=== PATIENT | male | born 1950 | race American Indian/Alaskan Native ===

== ENCOUNTER 2022-03-09 08:30 | Emergency (ER) | payer MEDICAID, MEDICARE ==
[2022-03-09] MEDS ORDERED: DEXTROSE 50% IN WATER (25GM) 50 ML SYRINGE IV SCH (09:01)
--- NOTE | 2022-03-09 09:03 | Emergency Department Report ---
<ZENANA C - Last Filed: 03/09/22 15:03> - General Chief complaint: Hypoglycemia Stated complaint: AMS Time Seen by Provider: 03/09/22 08:57 Source: EMS, old records reviewed Mode of arrival: Stretcher Limitations: Altered Mental Status - History of Present Illness Initial comments: 71-year male the past medical history diabetes currently on insulin and hypertension presents from home to the hospital with altered mental status secondary to hypoglycemia. Patient had an Accu-Chek of 38 upon EMS arrival. He was treated with D5 NS 250 mL with improvement in mental status. Patient also apparently had initial room air saturation of 88% was treated with supplemental oxygenation via nasal cannula. EMS reports repeat Accu-Chek of 359. Upon arriva l patient is awake but nonverbal and is only moving the left side of his body. Per EMS the significant other at the scene states patient was last seen normal around 7 PM last night when he went to sleep and was found altered this morning. Contact for girlfriend is not available and she is not present. After my assessment of the patient at the bedside I called next of kin contact on medical record and spoke to patient's sister Nina. She states she last spoke to patient 4 days ago. She denies that patient has a history of stroke, weakness, confusion, or aphasia. At his baseline he ambulates without assistance at baseline. Code stroke initiated. Repeat Accu-Chek in the ED was 65 and an amp of D50 provided prior to transport to CT - Related Data Home Medications Medication Instructions Recorded Confirmed Last Taken Chlorthalidone [Thalitone] 25 mg PO QDAY 06/30/13 06/30/13 Unknown Gabapentin 300 mg PO 06/30/13 06/30/13 Unknown Lisinopril/Hydrochlorothiazide 20 - 25 mg PO DAILY 06/30/13 06/30/13 Unknown [Zestoretic 20-25 mg] Metoprolol [Lopressor] 25 mg PO BID 06/30/13 06/30/13 Unknown lisinopriL [Zestril] 40 mg PO QDAY 06/30/13 06/30/13 Unknown metFORMIN [Glucophage] 500 mg PO BID 06/30/13 06/30/13 Unknown Previous Rx's Medication Instructions Recorded Last Taken Type Cephalexin [Keflex] 500 mg PO BID #14 capsule 07/09/14 Unknown Rx Sulfamethoxazole/Trimethoprim 1 each PO BID #14 tablet 04/22/14 Unknown Rx [Bactrim Ds] Allergies Allergy/AdvReac Type Severity Reaction Status Date / Time No Known Allergies Allergy Verified 04/22/14 10:06 ED Review of Systems Comment: Unobtainable due to pts medical conditions ED Past Medical Hx - Past Medical History Hx Hypertension: Yes Hx Diabetes: Yes - Surgical History Additional Surgical History: Left shoulder surgery - Social History Smoking Status: Current Every Day Smoker Substance Use Type: Alcohol - Medications Home Medications: Home Medications Medication Instructions Recorded Confirmed Last Taken Type Chlorthalidone [Thalitone] 25 mg PO QDAY 06/30/13 06/30/13 Unknown History Gabapentin 300 mg PO 06/30/13 06/30/13 Unknown History Lisinopril/Hydrochlorothiazide 20 - 25 mg PO DAILY 06/30/13 06/30/13 Unknown History [Zestoretic 20-25 mg] Metoprolol [Lopressor] 25 mg PO BID 06/30/13 06/30/13 Unknown History lisinopriL [Zestril] 40 mg PO QDAY 06/30/13 06/30/13 Unknown History metFORMIN [Glucophage] 500 mg PO BID 06/30/13 06/30/13 Unknown History Cephalexin [Keflex] 500 mg PO BID #14 capsule 04/22/14 Unknown Rx Sulfamethoxazole/Trimethoprim 1 each PO BID #14 tablet 04/22/14 Unknown Rx [Bactrim Ds] ED Physical Exam - General Limitations: Altered Mental Status - Other Other exam information: General: No acute distress Head: Atraumatic Eyes: normal appearance ENT: Moist mucous membranes Neck: Normal appearance, no midline tenderness Chest: Clear to auscultation bilaterally CV: Regular rate and rhythm Abdomen: Soft, normal bowel sounds, nontender, nondistended, no rebound or guarding Back: Normal inspection Extremity: Normal inspection Neuro: Alert, nonverbal Psych: Appropriate behavior Skin: No rash - Assessment Assessment Interval: Baseline - Level of Consciousness 1a. Level of Consciousness: arousable/minor stimuli - LOC Questions 1b. LOC Questions: answers no questions correctly - LOC Command 1c. LOC Commands: performs no tasks correctly - Best Gaze 2. Best Gaze: forced deviation - Visual 3. Visual: no visual loss - Facial Palsy 4. Facial Palsy: normal symmetrical movement - Motor Arm 5a. Motor Arm Left: no drift 5b. Motor Arm Right: no movement - Motor Leg 6a. Motor Leg Left: no drift 6b. Motor Leg Right: no movement - Limb Ataxia 7. Limb Ataxia: absent - Sensory 8. Sensory: normal - Best Language 9. Best Language: mute/global aphasia - Dysarthria 10. Dysarthria: severe dysarthria - Extinction and Inattention 11. Extinction/Inattention: no abnormality - Scoring Total Score: 20 Stroke Severity: Moderate to Severe Stroke ED Course - Reevaluation(s) Reevaluation #1: 03/09/22 11:23 Patient's girlfriend of 20 years at the bedside. They are not legally . She states patient recently started to follow-up with a physician and was placed on diabetes medication 03/09/22 11:51 sister at bedside to consent for blood transfusion 03/09/22 15:05 Patient was medicated with Benadryl and Ativan due to agitation to facilitate obtaining MRI - Consultations Consultation #1: 03/09/22 11:38 Neurology was initially consulted during code stroke. I rediscussed case with Dr. Limon at this time regarding CT findings of possible dural sinus thrombosis. Recommends anticoagulation with heparin or Lovenox. Consultation #2: 03/09/22 13:06 case d/w Dr Donavon lainez neurosurgeon. Recommends either with CT venogram or MRI brain without and MRI cervical spine. I discussed case with development technologist and they are only able to give IV contrast was in a 24-hour period. Therefore stat MRI ordered. Patient would not be accepted for admission here until MRI results to make sure that patient does not require transfer to a higher level of care ED Medical Decision Making - Lab Data Result diagrams: 03/09/22 09:48 03/09/22 09:48 Lab Results 03/09/22 03/09/22 03/09/22 Range/Units 09:48 09:48 09:48 WBC 6.8 (4.5-11.0) K/mm3 RBC 1.85 L (3.65-5.03) M/mm3 Hgb 5.5 L* (11.8-15.2) gm/dl Hct 16.1 L* (35.5-45.6) % MCV 87 (84-94) fl MCH 30 (28-32) pg MCHC 35 H (32-34) % RDW 14.7 (13.2-15.2) % Plt Count 84 L (140-440) K/mm3 Lymph % (Auto) 27.7 (13.4-35.0) % [place] % (Auto) 8.4 H (0.0-7.3) % Eos % (Auto) 0.0 (0.0-4.3) % Baso % (Auto) 1.9 H (0.0-1.8) % Lymph # (Auto) 1.9 (1.2-5.4) K/mm3 [place] # (Auto) 0.6 (0.0-0.8) K/mm3 Eos # (Auto) 0.0 (0.0-0.4) K/mm3 Baso # (Auto) 0.1 (0.0-0.1) K/mm3 Seg Neutrophils % 62.0 (40.0-70.0) % Seg Neutrophils # 4.2 (1.8-7.7) K/mm3 PT 17.3 H (12.2-14.9) Sec. INR 1.26 H (0.87-1.13) APTT 41.3 H (24.2-36.6) Sec. Thrombin Time 13.6 L (15.1-19.6) Sec. Sodium (137-145) mmol/L Potassium (3.6-5.0) mmol/L Chloride (98-107) mmol/L Carbon Dioxide (22-30) mmol/L Anion Gap mmol/L BUN (9-20) mg/dL Creatinine (0.8-1.3) mg/dL Estimated GFR ml/min BUN/Creatinine Ratio % Glucose (75-100) mg/dL POC Glucose (70-105) mg/dL Calcium (8.4-10.2) mg/dL Total Bilirubin (0.1-1.2) mg/dL AST (5-40) units/L ALT (7-56) units/L Alkaline Phosphatase (35-129) units/L Total Creatine Kinase 134 (55-170) units/L CK-MB (CK-2) 3.3 (0.0-4.0) ng/mL CK-MB (CK-2) Rel Index 2.4 (0-4) Troponin T 0.014 (0.00-0.029) ng/mL Total Protein (6.3-8.2) g/dL Albumin (3.9-5) g/dL Albumin/Globulin Ratio % 03/09/22 03/09/22 Range/Units 09:48 10:19 WBC (4.5-11.0) K/mm3 RBC (3.65-5.03) M/mm3 Hgb (11.8-15.2) gm/dl Hct (35.5-45.6) % MCV (84-94) fl MCH (28-32) pg MCHC (32-34) % RDW (13.2-15.2) % Plt Count (140-440) K/mm3 Lymph % (Auto) (13.4-35.0) % [place] % (Auto) (0.0-7.3) % Eos % (Auto) (0.0-4.3) % Baso % (Auto) (0.0-1.8) % Lymph # (Auto) (1.2-5.4) K/mm3 [place] # (Auto) (0.0-0.8) K/mm3 Eos # (Auto) (0.0-0.4) K/mm3 Baso # (Auto) (0.0-0.1) K/mm3 Seg Neutrophils % (40.0-70.0) % Seg Neutrophils # (1.8-7.7) K/mm3 PT (12.2-14.9) Sec. INR (0.87-1.13) APTT (24.2-36.6) Sec. Thrombin Time (15.1-19.6) Sec. Sodium 124 L (137-145) mmol/L Potassium 3.9 (3.6-5.0) mmol/L Chloride 91.7 L (98-107) mmol/L Carbon Dioxide 18 L (22-30) mmol/L Anion Gap 18 mmol/L BUN 11 (9-20) mg/dL Creatinine 0.4 L (0.8-1.3) mg/dL Estimated GFR > 60 ml/min BUN/Creatinine Ratio 28 % Glucose 98 (75-100) mg/dL POC Glucose 109 H (70-105) mg/dL Calcium 7.8 L (8.4-10.2) mg/dL Total Bilirubin 0.30 (0.1-1.2) mg/dL AST 14 (5-40) units/L ALT 9 (7-56) units/L Alkaline Phosphatase 152 H (35-129) units/L Total Creatine Kinase (55-170) units/L CK-MB (CK-2) (0.0-4.0) ng/mL CK-MB (CK-2) Rel Index (0-4) Troponin T (0.00-0.029) ng/mL Total Protein 5.7 L (6.3-8.2) g/dL Albumin 3.0 L (3.9-5) g/dL Albumin/Globulin Ratio 1.1 % - EKG Data -: EKG Interpreted by Ma EKG shows normal: sinus rhythm, ST-T waves (no stemi) - Radiology Data Radiology results: report reviewed CT HEAD WITHOUT CONTRAST INDICATION / CLINICAL INFORMATION: Stroke symptoms. TECHNIQUE: Axial imaging performed from the skull apex through the skull base without the use of contrast. Sagittal and coronal reformatted images. All CT scans at this location are performed us ing CT dose reduction for ALARA by means of automated exposure control. COMPARISON: None available. FINDINGS: CEREBRAL PARENCHYMA: No acute parenchymal abnormality is detected. There are moderate chronic ischemic changes in the white matter. There are 2 focal chronic infarcts in the left anterior basal ganglia measuring up to 1.5 cm and the left subinsular region measuring up to 1.0 cm. HEMORRHAGE: None. EXTRA-AXIAL SPACES: Normal in size and morphology for the patient's age. VENTRICULAR SYSTEM: Ventricular size is slightly prominent which could represent central volume loss. Mild normal pressure hydrocephalus could also be considered. MIDLINE SHIFT OR HERNIATION: None. CEREBELLUM / BRAINSTEM: No significant abnormality. CALVARIUM: No significant abnormality. ORBITS: Normal as visualized. PARANASAL SINUSES / MASTOID AIR CELLS: Mild to moderate mucosal thickening in the left ethmoid and left maxillary sinuses. The remaining sinuses are clear. SOFT TISSUES of HEAD: No significant abnormality. ADDITIONAL FINDINGS: None. IMPRESSION: No acute intracranial abnormality. Chronic white matter changes. 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 Slightly prominent ventricular system probably representing central volume loss. Chronic appearing sinus disease in the left ethmoid and maxillary sinuses. CTA neck without and with intravenous contrast material CLINICAL HISTORY: hypoglycemia, right sided weakness TECHNIQUE: Following acquisition of a timing bolus 0.625 mm thick contiguous axial scans w ere obtained from aortic arch to the skull base during rapid bolus intravenous contrast infusion. In addition to evaluation of axial source images multiplanar reconstructions were produced and reviewed for this report. 3 plane MIP reconstructions were produced and reviewed. Contrast dose report: Omnipaque 350: 100: ml, administered intravenously All CT examinations performed at this facility utilize modulated dose reduction, iterative reconstruction or weight-based dosing, as appropriate, to obtain a radiation dose which is as low as can reasonably be achieved. FINDINGS: Evaluation of bone windows reveals multiple lytic lesions throughout the cervical spine and upper thoracic region. Similar findings are seen in the manubrium sternum. The largest lesions are observed in the C7 and T1 spinous processes and the T2 vertebral body. Extensive involvement of the right scapula is noted. There is a pathological fracture through the glenoid fossa. Considerations include multiple myeloma and widespread metastatic disease. Thoracic aorta:No abnormalities are identified along the course of the thoracic aorta.. There is a common origin of the brachiocephalic artery and left common carotid artery. The origins of the great vessels have an otherwise unremarkable appearance. Brachiocephalic artery, left common carotid artery origin and left subclavian artery all have an unremarkable appearance. Right carotid artery: Calcified atherosclerotic plaque is present at the distal right common carotid artery and right carotid bulb without evidence of associated stenosis. No additional abnormalities are seen along the course of the RCCA, at the right carotid bifurcation or along the cervical portions of the HIRA. Left carotid artery: Mildly calcified atherosclerotic plaque is present at the left carotid bulb with no associated stenosis. No additional abnormalities are noted along the course of the left common carotid artery, at the left carotid bifurcation or along the course of the cervical segments of the LICA. Posterior circulation: Calcified atherosclerotic plaque is observed at the origins of both vertebral arteries. There is no associated stenosis. The 1 in the A2 segments of the vertebral arteries have an unremarkable appearance. No abnormalities are seen along the course of the V3 segments. The degree of stenosis, if any, is determined utilizing NASCET like criteria. In this case there is no indication of hemodynamically significant stenosis at the carotid bifurcations or elsewhere. Evaluation of the nonvascular soft tissue structures reveal no abnormality. There is no indication of cervical lymphadenopathy. No abnormalities are seen along the course of the airway. Visualized portions of the parotid glands and the submandibular salivary glands have a normal appearance. Thyroid gland has a normal appearance. Evaluation of the lung apices reveals no evidence of lung nodule or infiltrate. IMPRESSION: 1. Widespread lytic bone lesions likely due to multiple myeloma or widespread metastatic disease to bone. 2. No indication of hemodynamically significant stenosis at the carotid bifurcations or elsewhere. CTA head with intravenous contrast CLINICAL HISTORY: hypoglycemia, right sided weakness TECHNIQUE: 0.625 mm thick contiguous axial scans were obtained from the skull base to the skull vertex during rapid bolus administration of intravenous contrast material. Multiplanar reconstructions were produced in the coronal and sagittal planes. In addition 3 plane MIP instructions were produced and reviewed for this report. The axial source images and reconstructed images were reviewed for this report. CONTRAST DOSE REPORT: Omnipaque 350: 100 ml administered intravenously. All CT scans at this location are performed using CT dose reduction for ALARA by means of automated exposure control. FINDINGS: Internal carotid arteries: Extensively calcified atherosclerotic plaque is seen along the course of the cavernous segments of both internal carotid arteries. This extends up through the communicating segments bilaterally. There does not appear to be an associated stenosis. Middle cerebral arteries:Normal and symmetrical M1 segments of the middle cerebral arteries are demonstrated. No abnormalities are seen on evaluation of the insular or opercular branches. Anterior cerebral arteries:Bilaterally symmetrical A1 segments are demonstrated. No abnormalities are seen along the course of the A2 segments or their visualized pericallosal branches. A small anterior communicating artery is identified. Vertebral arteries:Bilaterally symmetrical vertebral arteries are demonstrated. Both vertebral arteries contribute to the basilar artery origin. Basilar artery:Basilar artery has an unremarkable appearance. Posterior cerebral arteries:Bilaterally symmetrical posterior cerebral arteries are identified. Posterior communicating arteries are not identified. [place] of [place]:Not intact. see above. Dural sinuses: Dural venous sinuses are well demonstrated on this exam. There is no evidence of dural sinus thrombosis. Additional findings: Extensive soft tissue swelling is seen involving the cheeks and upper limit. This is incompletely evaluated. Possibility of cellulitis to be considered. Extensive inflammatory changes are present in the left maxillary sinus. There is dehiscence of the inferior lateral wall of the maxillary sinus. This appears to be related to advanced periodontal disease. IMPRESSION: 1. No indication of intercranial stenosis or large vessel occlusion. 2. Findings suggest facial cellulitis perhaps related to left maxillary sinusitis. ADDENDUM Addendum report 1 Evaluation of the dural sinuses is remarkable for absence of contrast opacification of the left transverse sinus and left sigmoid sinus. dural sinus thrombosis in these locations is suspected. This was discussed with Dr. Varela at 0930 hours Central standard time but I neglected to include this finding in the original report. Signer Name: Gavin Jane MD Signed: 03/09/2022 11:26 AM Workstation Name: [id number] - Medical Decision Making 71-year-old male presents to the hospital with hypoglycemia and stroke symptoms with acute change in mental status, aphasia, right-sided weakness. Last known well time graded 4.5 hours ago therefore patient is not a candidate for thrombolytics. CT angiogram head and neck does not show large vessel occlusion therefore patient is not a candidate for thrombectomy. Incidental findings on imaging does show multiple bony lytic lesions suspicious for Metastatic cancer versus multiple myeloma. Patient has significant anemia with brown stool that is guaiac negative. No signs of acute hemorrhage noted at this time. CT angio head positive for dural sinus thrombosis with recommended treatment with heparin or Lovenox as per neurologist. Patient has a guaiac negative stool test without signs of active bleeding. ER does have thrombocytopenia. Heparin drip will be initiated. Patient treated for hypoglycemia prior to ED arrival and given additional D50 in the ED. Hospitalist to admit for further treatment. Case will be signed out to oncoming physician Dr. Teran to follow-up for MR results and contact Dr. Lainez neurosurgeon to confirm that findings can be handled here if patient would not require transfer. Then we notify Dr. Alcala for admission order Critical Care Time: Yes Critical care time in (mins) excluding proc time.: 35 Critical Care Time: 35 Minutes of critical care time excluding procedures were used in the care of the patient. I came immediately to the bedside upon patient's arrival. I obtained history from EMS at the bedside. I discussed treatment plan with the nursing team members. I reviewed electronic record. I spoke with family to obtain medical history. Patient required multiple interventions and reassessments. Spoke with hospitalist and consultants for collaborative care ED Disposition Clinical Impression: Hypoglycemia, Aphasia, Right sided weakness, Dural sinus thrombosis, Lytic bone lesions on xray, Severe anemia, Thrombocytopenia Disposition: 51 HOSPICE/MEDICAL FACILITY Is pt being admited?: Yes Does the pt Need Aspirin: Yes Condition: Stable Referrals: PRIMARY CARE, [Primary Care Provider] - 3-5 Days Time of Disposition: 11:55 (Dr Alcala/hosptialist) <NISH TERAN - Last Filed: 03/09/22 17:53> ED Review of Systems ROS: Stated complaint: AMS Other details as noted in HPI ED Course Vital Signs 03/09/22 03/09/22 03/09/22 09:01 09:48 10:01 Temperature 96.8 F L Pulse Rate 104 H 110 H Respiratory 20 12 13 Rate Blood Pressure 121/67 Blood Pressure 100/59 [Left] O2 Sat by Pulse 97 84 83 L Oximetry 03/09/22 03/09/22 03/09/22 10:15 10:31 10:45 Temperature Pulse Rate 115 H 106 H 107 H Respiratory 15 17 11 L Rate Blood Pressure 130/67 107/52 90/45 Blood Pressure [Left] O2 Sat by Pulse 92 98 100 Oximetry 03/09/22 03/09/22 03/09/22 11:01 11:15 11:16 Temperature Pulse Rate 114 H 107 H 100 H Respiratory 18 17 18 Rate Blood Pressure 93/51 93/49 Blood Pressure 91/51 [Left] O2 Sat by Pulse 100 100 100 Oximetry 03/09/22 03/09/22 03/09/22 11:31 11:45 12:01 Temperature Pulse Rate 108 H 108 H 113 H Respiratory 17 15 18 Rate Blood Pressure 91/51 83/54 98/53 Blood Pressure [Left] O2 Sat by Pulse 100 99 100 Oximetry 03/09/22 03/09/22 03/09/22 12:10 12:15 12:31 Temperature Pulse Rate 110 H 111 H 109 H Respiratory 20 17 Rate Blood Pressure 86/49 88/46 Blood Pressure 86/59 [Left] O2 Sat by Pulse 100 100 Oximetry 03/09/22 03/09/22 03/09/22 12:45 13:01 13:04 Temperature 97.3 F L Pulse Rate 112 H 110 H Respiratory 13 18 31 H Rate Blood Pressure 89/47 91/52 104/73 Blood Pressure [Left] O2 Sat by Pulse 100 100 Oximetry 03/09/22 03/09/22 03/09/22 13:15 13:31 13:45 Temperature Pulse Rate Respiratory 20 19 18 Rate Blood Pressure 104/73 100/64 91/52 Blood Pressure [Left] O2 Sat by Pulse 100 100 100 Oximetry 03/09/22 03/09/22 03/09/22 14:01 14:15 14:24 Temperature 98.2 F Pulse Rate 101 H Respiratory 13 17 14 Rate Blood Pressure 97/63 109/65 Blood Pressure 109/63 [Left] O2 Sat by Pulse 100 100 100 Oximetry 03/09/22 03/09/22 03/09/22 14:31 14:45 15:01 Temperature Pulse Rate Respiratory 15 18 13 Rate Blood Pressure 109/63 109/65 109/64 Blood Pressure [Left] O2 Sat by Pulse 100 100 100 Oximetry 03/09/22 03/09/22 03/09/22 15:09 15:11 15:20 Temperature Pulse Rate 101 H Respiratory 16 13 Rate Blood Pressure 111/61 110/65 Blood Pressure 104/73 [Left] O2 Sat by Pulse 99 100 Oximetry 03/09/22 03/09/22 03/09/22 15:25 15:30 16:37 Temperature 97.5 F L Pulse Rate 109 H Respiratory 16 15 14 Rate Blood Pressure 110/65 107/70 110/65 Blood Pressure [Left] O2 Sat by Pulse 99 98 Oximetry 03/09/22 03/09/22 03/09/22 16:45 17:01 17:15 Temperature Pulse Rate 95 H 94 H 119 H Respiratory 17 15 11 L Rate Blood Pressure 91/55 110/65 105/59 Blood Pressure [Left] O2 Sat by Pulse 97 100 96 Oximetry 03/09/22 17:26 Temperature 97.8 F Pulse Rate 116 H Respiratory 14 Rate Blood Pressure Blood Pressure 114/80 [Left] O2 Sat by Pulse 98 Oximetry ED Medical Decision Making - Lab Data Result diagrams: 03/09/22 09:48 03/09/22 09:48 - Medical Decision Making Patient is back from MRI. Accu-Chek showed 23. Patient received dextrose 50 and I started patient on dextrose 10%. MRI of the brain showed dural sinus thrombosis associated with transverse sinus. I discussed the patient with Dr. Walls, neurosurgeon on-call. He advised to transfer patient to facility with an neuro ICU. I discussed the patient with [place] transfer center and waiting for result. I discussed the patient with Dr. Srivastava, neurosurgeon at [facility]. She accepted the patient to be transferred to [facility] for further management. She also advised to give patient Keppra and continue the current management. Critical care time in (mins) excluding proc time.: 45 Critical care attestation.: If time is entered above; I have spent that time in minutes in the direct care of this critically ill patient, excluding procedure time.
[2022-03-09] MEDS ORDERED: DEXTROSE 50% IN WATER (25GM) 50 ML SYRINGE IV ONE ×3 (09:04→17:00)
--- NOTE | 2022-03-09 09:19 | Consultation ---
Medications and Allergies Allergies Allergy/AdvReac Type Severity Reaction Status Date / Time No Known Allergies Allergy Verified 04/22/14 10:06 Home Medications Medication Instructions Recorded Confirmed Last Taken Type Chlorthalidone [Thalitone] 25 mg PO QDAY 06/30/13 06/30/13 Unknown History Gabapentin 300 mg PO 06/30/13 06/30/13 Unknown History Lisinopril/Hydrochlorothiazide 20 - 25 mg PO DAILY 06/30/13 06/30/13 Unknown History [Zestoretic 20-25 mg] Metoprolol [Lopressor] 25 mg PO BID 06/30/13 06/30/13 Unknown History lisinopriL [Zestril] 40 mg PO QDAY 06/30/13 06/30/13 Unknown History metFORMIN [Glucophage] 500 mg PO BID 06/30/13 06/30/13 Unknown History Cephalexin [Keflex] 500 mg PO BID #14 capsule 04/22/14 Unknown Rx Sulfamethoxazole/Trimethoprim 1 each PO BID #14 tablet 04/22/14 Unknown Rx [Bactrim Ds] Active Meds: Active Medications Dextrose (Dextrose 50% In Water (25gm) 50 Ml Syringe) 50 ml IV ONCE LUCA; Protocol Physical Examination - Vital Signs Vital Signs: Vital Signs Temp Pulse Resp BP Pulse Ox 96.8 F L 104 H 20 100/59 97 03/09/22 09:01 03/09/22 09:01 03/09/22 09:01 03/09/22 09:01 03/09/22 09:01 Assessment and Plan [facility] Consult Note # Demographics Consult Type: Acute Stroke Level 1 (0-4.5 hrs) Patient Location: Emergency Room First Name: John Last Name: Brandt Date of : 1950 Age: 71 Gender: Male Facility: [facility] Time of Initial Page (Eastern Time): 03/09/2022, 09:03 Time of Return Call (Eastern Time): 03/09/2022, 09:03 # HPI History: 71M lives with girlfriend, no contact information for her, she is not present. Reportedly last well at 19:00 yesterday. On insulin for DM, low glucose 35 per EMS, given dextrose. Now not speaking and right weakness. Per family he is able to walk and communicate normally. Glucose low at 65 in ED. # Scores Time of exam and NIHSS (Eastern Time): 03/09/2022, 09:08 Level of Consciousness 1a: [2] = Not alert; requires strong or painful stim LOC Questions 1b: [2] = Answers neither correctly LOC Commands 1c: [2] = Performs neither correctly Best Gaze 2: [2] = Forced deviation Visual 3: [0] = No visual loss Facial Palsy 4: [0] = Normal symmetrical movements Motor Arm Left 5a: [0] = No drift Motor Arm Right 5b: [4] = No movement Motor Leg Left 6a: [0] = No drift Motor Leg Right 6b: [3] = No effort against gravity Limb Ataxia 7: [0] = Absent Sensory 8: [0] = Normal Best Language 9: [3] = Mute Dysarthria 10: [2] = Severe dysarthria Extinction and Inattention 11: [0] = No abnormality NIHSS Total: 20 # Exam SBP: 100 DBP: 59 # PMH-FH-SH Past Medical History: Diabetes hypertension Past Surgical History: L shoulder surgery Social History: smoker occasional alcohol Medications: antihypertensive gabapentin, insulin # Data Time Head CT personally read by me (Eastern Time): 03/09/2022, 09:[address]: no bleed preliminarily reviewed by me, please refer to radiology read for official reading # Assessment Impression: Ischemic Stroke (Acute) Or neurologic deficit due to hypoglycemia, subclinical seizure, other. Favor stroke with current examination. # Plan Thrombolytic/Intervention: Possible IA candidate Thrombolytic Exclusion (< 3 hour window): time of onset unclear Thrombolytic Exclusion: > 4.5 hours Possible IA Candidate: CTA pending Target Blood Pressure: SBP < 220 Imaging: (urgency: routine): MRI Brain without contrast Diagnostic Test: echo without bubble study Medication: aspirin 81 mg daily start statin with goal of LDL < 70 Other: LDL < 70 permissive hypertension telemetry monitoring I have discussed my recommendations with the referring provider Additional Recommendations: If large vessel occlusion found on CTA head/neck, urgent consultation with neurointerventional specialist and transfer. Otherwise can admit locally. Disposition: admit # Logistics Telemedicine: Interactive 2 way audio and visual telecommunication technology was utilized during this visit
--- NOTE | 2022-03-09 10:14 | Cat Scan Report ---
CT HEAD WITHOUT CONTRAST INDICATION / CLINICAL INFORMATION: Stroke symptoms. TECHNIQUE: Axial imaging performed from the skull apex through the skull base without the use of cont rast. Sagittal and coronal reformatted images. All CT scans at this location are performed using CT dose reduction for ALARA by means of automated exposure control. COMPARISON: None available. FINDINGS: CEREBRAL PARENCHYMA: No acute parenchymal abnormality is detected. There are moderate chronic ischemi c changes in the white matter. There are 2 focal chronic infarcts in the left anterior basal ganglia measuring up to 1.5 cm and the left subinsular region measuring up to 1.0 cm. HEMORRHAGE: None. EXTRA-AXIAL SPACES: Normal in size and morphology for the patient's age. VENTRICULAR SYSTEM: Ventricular size is slightly prominent which could represent central volume loss. Mild normal pressure hydrocephalus could also be considered. MIDLINE SHIFT OR HERNIATION: None. CEREBELLUM / BRAINSTEM: No significant abnormality. CALVARIUM: No significant abnormality. ORBITS: Normal as visualized. PARANASAL SINUSES / MASTOID AIR CELLS: Mild to moderate mucosal thickening in the left ethmoid and le ft maxillary sinuses. The remaining sinuses are clear. SOFT TISSUES of HEAD: No significant abnormality. ADDITIONAL FINDINGS: None. IMPRESSION: No acute intracranial abnormality. Chronic white matter changes. Focal chronic infarcts in the left a nterior basal ganglia region. Slightly prominent ventricular system probably representing central volume loss. Chronic appearing sinus disease in the left ethmoid and maxillary sinuses. CODE STROKE: Time of Communication (SYSTEM DEVELOPMENT MANAGER/CDT): 0908 hours Licensed Practitioner Receiving Report: Dr. Varela Signer Name: Oren Harley Jr, MD Signed: 03/09/2022 10:09 AM Workstation Name: [id number]
[2022-03-09 10:18] LABS: Basophils # (Auto) 0.1 K/mm3 (0.0-0.1); Basophils % (Auto) 1.9 % (0.0-1.8); Lymphocytes # (Auto) 1.9 K/mm3 (1.2-5.4); Lymphocytes % (Auto) 27.7 % (13.4-35.0); Mean Corpuscular HGB Conc 35 % (32-34); Mean Corpuscular Volume 87 fl (84-94); Monocytes # (Auto) 0.6 K/mm3 (0.0-0.8); Monocytes % (Auto) 8.4 % (0.0-7.3); Red Blood Count 1.85 M/mm3 (3.65-5.03); Red Cell Distribution Width 14.7 % (13.2-15.2)
[2022-03-09 10:24] LABS: Hematocrit 16.1 % (35.5-45.6); Hemoglobin 5.5 gm/dl (11.8-15.2); Platelet Count 84 K/mm3 (140-440)
[2022-03-09 10:26] LABS: INR 1.26 (0.87-1.13)
[2022-03-09 10:27] LABS: Thrombin Time 13.6 Sec. (15.1-19.6)
[2022-03-09 10:28] LABS: Partial Thromboplastin Time 41.3 Sec. (24.2-36.6)
[2022-03-09 10:35] LABS: Creatine Kinase MB 3.3 ng/mL (0.0-4.0)
--- NOTE | 2022-03-09 10:36 | Cat Scan Report ---
CTA neck without and with intravenous contrast material CLINICAL HISTORY: hypoglycemia, right sided weakness TECHNIQUE: Following acquisition of a timing bolus 0.625 mm thick contiguous axial scans were obtained from aort ic arch to the skull base during rapid bolus intravenous contrast infusion. In addition to evaluation of axial source images multiplanar reconstructions were produced and reviewed for this report. 3 ceci ne MIP reconstructions were produced and reviewed. Contrast dose report: Omnipaque 350: 100: ml, administered intravenously All CT examinations performed at this facility utilize modulated dose reduction, iterative reconstruc tion or weight-based dosing, as appropriate, to obtain a radiation dose which is as low as can reason ably be achieved. FINDINGS: Evaluation of bone windows reveals multiple lytic lesions throughout the cervical spine and upper tho racic region. Similar findings are seen in the manubrium sternum. The largest lesions are observed in the C7 and T1 spinous processes and the T2 vertebral body. Extensive involvement of the right scapul a is noted. There is a pathological fracture through the glenoid fossa. Considerations include multip le myeloma and widespread metastatic disease. Thoracic aorta:No abnormalities are identified along the course of the thoracic aorta.. There is a co mmon origin of the brachiocephalic artery and left common carotid artery. The origins of the great ve ssels have an otherwise unremarkable appearance. Brachiocephalic artery, left common carotid artery o rigin and left subclavian artery all have an unremarkable appearance. Right carotid artery: Calcified atherosclerotic plaque is present at the distal right common carotid artery and right carotid bulb without evidence of associated stenosis. No additional abnormalities ar e seen along the course of the RCCA, at the right carotid bifurcation or along the cervical portions of the HIRA. Left carotid artery: Mildly calcified atherosclerotic plaque is present at the left carotid bulb with no associated stenosis. No additional abnormalities are noted along the course of the left common ca rotid artery, at the left carotid bifurcation or along the course of the cervical segments of the LIC A. Posterior circulation: Calcified atherosclerotic plaque is observed at the origins of both vertebral arteries. There is no associated stenosis. The 1 in the A2 segments of the vertebral arteries have an unremarkable appearance. No abnormalities are seen along the course of the V3 segments. The degree of stenosis, if any, is determined utilizing NASCET like criteria. In this case there is no indication of hemodynamically significant stenosis at the carotid bifurcations or elsewhere. Evaluation of the nonvascular soft tissue structures reveal no abnormality. There is no indication of cervical lymphadenopathy. No abnormalities are seen along the course of the airway. Visualized porti ons of the parotid glands and the submandibular salivary glands have a normal appearance. Thyroid gla nd has a normal appearance. Evaluation of the lung apices reveals no evidence of lung nodule or infil trate. IMPRESSION: 1. Widespread lytic bone lesions likely due to multiple myeloma or widespread metastatic disease to b one. 2. No indication of hemodynamically significant stenosis at the carotid bifurcations or elsewhere. CTA head with intravenous contrast CLINICAL HISTORY: hypoglycemia, right sided weakness TECHNIQUE: 0.625 mm thick contiguous axial scans were obtained from the skull base to the skull vertex during r apid bolus administration of intravenous contrast material. Multiplanar reconstructions were produced in the coronal and sagittal planes. In addition 3 plane MIP instructions were produced and reviewed for this report. The axial source images and reconstructed images were reviewed for this report. CONTRAST DOSE REPORT: Omnipaque 350: 100 ml administered intravenously. All CT scans at this location are performed using CT dose reduction for ALARA by means of automated e xposure control. FINDINGS: Internal carotid arteries: Extensively calcified atherosclerotic plaque is seen along the course of t he cavernous segments of both internal carotid arteries. This extends up through the communicating se gments bilaterally. There does not appear to be an associated stenosis. Middle cerebral arteries:Normal and symmetrical M1 segments of the middle cerebral arteries are demon strated. No abnormalities are seen on evaluation of the insular or opercular branches. Anterior cerebral arteries:Bilaterally symmetrical A1 segments are demonstrated. No abnormalities are seen along the course of the A2 segments or their visualized pericallosal branches. A small anterior communicating artery is identified. Vertebral arteries:Bilaterally symmetrical vertebral arteries are demonstrated. Both vertebral arteri es contribute to the basilar artery origin. Basilar artery:Basilar artery has an unremarkable appearance. Posterior cerebral arteries:Bilaterally symmetrical posterior cerebral arteries are identified. Post erior communicating arteries are not identified. [place]:Not intact. see above. Dural sinuses: Dural venous sinuses are well demonstrated on this exam. There is no evidence of dural sinus thrombosis. Additional findings: Extensive soft tissue swelling is seen involving the cheeks and upper limit. Thi s is incompletely evaluated. Possibility of cellulitis to be considered. Extensive inflammatory platt es are present in the left maxillary sinus. There is dehiscence of the inferior lateral wall of the m axillary sinus. This appears to be related to advanced periodontal disease. IMPRESSION: 1. No indication of intercranial stenosis or large vessel occlusion. 2. Findings suggest facial cellulitis perhaps related to left maxillary sinusitis. CODE STROKE: Time of Communication (VE TEACHER/CDT): 0930 Central standard time Licensed Practitioner Receiving Report: Dr. Varela of the [facility] emergency de partment. Signer Name: Gavin Jane MD Signed: 03/09/2022 10:32 AM Workstation Name: [id number]
[2022-03-09 11:04] LABS: Alanine Aminotransferase 9 units/L (7-56); BUN/Creatinine Ratio 28; Blood Urea Nitrogen 11 mg/dL (9-20); Calcium 7.8 mg/dL (8.4-10.2); Hemolysis Index 47
--- NOTE | 2022-03-09 11:16 | XRay Report ---
CHEST 1 VIEW 03/09/2022 10:07 AM INDICATION / CLINICAL INFORMATION: hypoglycemia, ams. COMPARISON: None available. FINDINGS: SUPPORT DEVICES: None. HEART / MEDIASTINUM: No significant abnormality. LUNGS / PLEURA: Mild increased opacity extending from left hilum into the left lung. Elevation left h emidiaphragm and left effusion No pneumothorax. Signer Name: Perry Echols MD Signed: 03/09/2022 11:11 AM Workstation Name: [id number]
[2022-03-09] MEDS ORDERED: HEPARIN 10,000 UNITS/10 ML VIAL IV PRN (11:44)
[2022-03-09] MEDS ORDERED: HEPARIN 10,000 UNITS/10 ML VIAL IV ONE (11:44)
[2022-03-09] MEDS ORDERED: SODIUM CHLORIDE 0.9% 500 ML 500 ML IV ONE (11:46)
[2022-03-09] MEDS ORDERED: SODIUM CHLORIDE 0.9% 1000 ML 1,000 ML IV ONE ×2 (11:56→16:44)
[2022-03-09] MEDS ORDERED: HEPARIN/ 0.45% NACL DRIP 25,000 UNIT/500 ML BAG IV SCH (12:00)
--- NOTE | 2022-03-09 13:22 | History and Physical Report ---
History of Present Illness Chief complaint: He is confused and more weak than usual History of present illness: 71 YO Male with HTN, DM complicated by Neuropathy, Malnutrition, Debility presents ED for evaluation. Patient is confused and lethargic the time my evaluation and is unable to provide history. Patient daughter is at bedside during exam and interview and provides history. As per daughter the patient has experienced increased confusion and weakness over the past 2 weeks with persistent symptoms over the same timeframe. Patient was found to have increased weakness and confusion today. EMS was notified and upon arrival the patient was found to be in distress and subsequently transported to [facility] for f urther care and evaluation of the aforementioned symptoms. The patient was seen and evaluated in the emergency department. All lab and imaging studies reviewed. The patient was found to have decreased verbalization and is currently bedbound and nonambulatory and has a palliative performance score 30% and requires 6/6 assistance with activities of daily living. Patient found to have evidence of multiple myeloma with metastatic disease, metabolic encephalopathy, hypoglycemia, malnutrition. CT scan of the brain reveals dural venous sinus thrombosis in the left ethmoid sinus as well as left transverse sinus. Neurology team consulted in ED. Neurosurgery team notified. Patient initiated on therapeutic anticoagulation in the emergency department. Patient remains confused and lethargic at time of evaluation but has a positive gag reflex and is able to protect his airway without difficulty. Patient found to have poor prognosis. Advanced care planning conducted in ED. Past History Past Medical History: diabetes, hypertension Past Surgical History: Other (Shoulder surgery) Social history: Family history: hypertension Medications and Allergies Allergies Allergy/AdvReac Type Severity Reaction Status Date / Time No Known Allergies Allergy Verified 04/22/14 10:06 Home Medications Medication Instructions Recorded Confirmed Last Taken Type Chlorthalidone [Thalitone] 25 mg PO QDAY 06/30/13 06/30/13 Unknown History Gabapentin 300 mg PO 06/30/13 06/30/13 Unknown History Lisinopril/Hydrochlorothiazide 20 - 25 mg PO DAILY 06/30/13 06/30/13 Unknown History [Zestoretic 20-25 mg] Metoprolol [Lopressor] 25 mg PO BID 06/30/13 06/30/13 Unknown History lisinopriL [Zestril] 40 mg PO QDAY 06/30/13 06/30/13 Unknown History metFORMIN [Glucophage] 500 mg PO BID 06/30/13 06/30/13 Unknown History Cephalexin [Keflex] 500 mg PO BID #14 capsule 04/22/14 Unknown Rx Sulfamethoxazole/Trimethoprim 1 each PO BID #14 tablet 04/22/14 Unknown Rx [Bactrim Ds] Active Meds: Active Medications Dextrose (Dextrose 50% In Water (25gm) 50 Ml Syringe) 50 ml IV ONCE LUCA; Protocol Heparin Sodium (Porcine) (Heparin 10,000 Units/10 Ml Vial) 2,100 unit 40 unit/kg (2100 unit) IV Q6H PRN PRN Reason: Anti-Xa Assay < 0.1 units/ml Heparin Sodium/Sodium Chloride (Heparin/ 0.45% Nacl-25,000 Unit/500 Ml) 25,000 unit in 500 mls @ 15 mls/hr IV TITR LUCA; Protocol Review of Systems ROS unobtainable: due to mental status Exam - Constitutional Vitals: Temp Pulse Resp BP Pulse Ox 97.3 F L 110 H 31 H 104/73 99 03/09/22 13:04 03/09/22 13:04 03/09/22 13:04 03/09/22 13:04 03/09/22 11:45 General appearance: Present: mild distress - EENT Eyes: Present: PERRL ENT: hearing intact, clear oral mucosa - Neck Neck: Present: supple, normal ROM - Respiratory Respiratory effort: normal Respiratory: bilateral: diminished - Cardiovascular Heart Sounds: Present: S1 & S2. Absent: rub, click - Extremities Extremities: pulses symmetrical, No edema Peripheral Pulses: within normal limits - Abdominal General gastrointestinal: Present: soft, non-tender, non-distended, normal bowel sounds Male genitourinary: Present: normal - Integumentary Integumentary: Present: clear, warm, dry - Psychiatric Psychiatric: no appropriate mood/affect, no intact judgment & insight, no memory intact, agitated - Neurologic Neurologic: CNII-XII intact, no focal deficits, moves all extremities, no gait normal HEART Score - HEART Score Troponin: Troponin T 0.014 ng/mL (0.00-0.029) 03/09/22 09:48 Results - Labs CBC & Chem 7: 03/09/22 09:48 03/09/22 09:48 Labs: Abnormal lab results 03/09/22 03/09/22 03/09/22 Range/Units 09:48 09:48 09:48 RBC 1.85 L (3.65-5.03) M/mm3 Hgb 5.5 L* (11.8-15.2) gm/dl Hct 16.1 L* (35.5-45.6) % MCHC 35 H (32-34) % Plt Count 84 L (140-440) K/mm3 [place] % (Auto) 8.4 H (0.0-7.3) % Baso % (Auto) 1.9 H (0.0-1.8) % PT 17.3 H (12.2-14.9) Sec. INR 1.26 H (0.87-1.13) APTT 41.3 H (24.2-36.6) Sec. Thrombin Time 13.6 L (15.1-19.6) Sec. Sodium 124 L (137-145) mmol/L Chloride 91.7 L (98-107) mmol/L Carbon Dioxide 18 L (22-30) mmol/L Creatinine 0.4 L (0.8-1.3) mg/dL POC Glucose (70-105) mg/dL Calcium 7.8 L (8.4-10.2) mg/dL Alkaline Phosphatase 152 H (35-129) units/L Total Protein 5.7 L (6.3-8.2) g/dL Albumin 3.0 L (3.9-5) g/dL Crossmatch 03/09/22 03/09/22 Range/Units 10:19 10:56 RBC (3.65-5.03) M/mm3 Hgb (11.8-15.2) gm/dl Hct (35.5-45.6) % MCHC (32-34) % Plt Count (140-440) K/mm3 [place] % (Auto) (0.0-7.3) % Baso % (Auto) (0.0-1.8) % PT (12.2-14.9) Sec. INR (0.87-1.13) APTT (24.2-36.6) Sec. Thrombin Time (15.1-19.6) Sec. Sodium (137-145) mmol/L Chloride (98-107) mmol/L Carbon Dioxide (22-30) mmol/L Creatinine (0.8-1.3) mg/dL POC Glucose 109 H (70-105) mg/dL Calcium (8.4-10.2) mg/dL Alkaline Phosphatase (35-129) units/L Total Protein (6.3-8.2) g/dL Albumin (3.9-5) g/dL Crossmatch See Detail Assessment and Plan - Patient Problems (1) Dural sinus thrombosis Current Visit: Yes Status: Acute Plan to address problem: Teleneurology consulted in ED. Neurosurgical team notified. Patient suspected to require transfer for definitive treatment of dural venous sinus thromboses in both the left ethmoid sinus and left transverse sinus due to increased risk of worsening symptoms. Further treatment recommendations as per neurosurgery service are pending at this time. (2) Multiple myeloma Current Visit: Yes Status: Acute Qualifiers: Multiple myeloma remission status: unspecified Qualified Code(s): C90.00 - Multiple myeloma not having achieved remission Plan to address problem: Supportive care. Outpatient oncology follow-up. (3) Acidosis Current Visit: Yes Status: Acute Plan to address problem: IV for resuscitation therapy, supportive care. Repeat BMP in AM. (4) Metabolic encephalopathy Current Visit: Yes Status: Acute Plan to address problem: Supportive care, CT head, neurology consulted. Neurosurgery team consulted. Patient symptoms back to secondary to venous sinus thrombosis. As well as old CVA. (5) Severe malnutrition Current Visit: Yes Status: Acute Plan to address problem: Encourage increased protein intake when awake and alert only. Dietary supplementation. (6) Vascular dementia Current Visit: Yes Status: Acute Qualifiers: Dementia behavioral disturbance: without behavioral disturbance Qualified Code(s): F01.50 - Vascular dementia without behavioral disturbance Plan to address problem: Verbal prompting, verbal redirection, benzodiazepine therapy as clinically indicated. (7) Cerebral atherosclerosis Current Visit: Yes Status: Acute Plan to address problem: Risk factor reduction, supportive care. (8) Advance care planning Current Visit: Yes Status: Acute Plan to address problem: Disease education conducted, care plan discussed, diagnoses discussed, prognosis discussed. Patient is full code. Patient daughter informed of patient's poor prognosis with concomitant diagnosis of suspected multiple myeloma complicated by dural venous sinus thrombosis. Patient found to have poor prognosis. Geovani ter elects to pursue aggressive therapy. Patient daughter acknowledges understanding and agreement with current plan of care plan. Patient daughter informed of consult to neurosurgery. Currently awaiting recommendations regarding feasibility of neurosurgical intervention at this institution versus transfer to outside hospital for further care. +30 minutes. (9) Preventative health care Current Visit: Yes Status: Acute Plan to address problem: Patient daughter counseled regarding poor prognosis, end-of-life care. Patient daughter also counseled regarding home safety measures and outpatient follow-up with primary care physician for all age and risk factor appropriate screening test. +30 minutes.
[2022-03-09] MEDS ORDERED: diphenhydrAMINE 50 MG/ML VIAL IV ONE (14:08)
[2022-03-09] MEDS ORDERED: LORazepam 2 MG/ML VIAL IV ONE (14:37)
--- NOTE | 2022-03-09 16:45 | Magnetic Resonance Report ---
MRI BRAIN 03/09/2022 INDICATION / CLINICAL INFORMATION: acute right side weakness/aphasia, dura thrombosis. TECHNIQUE: Multiplanar, multisequence MR images of the brain were obtained. COMPARISON: None available. FINDINGS: BRAIN / INTRACRANIAL CONTENTS: Unenhanced MR images of the brain demonstrate no evidence of acute abn ormality. Ventricles and sulci are prominent in size, consistent with diffuse cerebral atrophy with central pre dominance. There is no evidence of acute ischemic injury, hemorrhage, or mass. Moderate chronic microangiopathic white matter T2 weighted hyperintensities are present in the periventricular white matter. There are no abnormal extra-axial fluid collections. There is relatively increased signal present within the left transverse and sigmoid sinuses on the FL AIR sequence. This corresponds to nonopacification on the CT angiogram, compatible with dural sinus v enous thrombosis associated with transverse sinus. EXTRACRANIAL: Unremarkable CRANIOCERVICAL JUNCTION: No significant abnormality. VASCULAR FLOW-VOIDS: No significant abnormality. IMPRESSION: No evidence of brain parenchymal acute abnormality. Age-related diffuse cerebral atrophy. Signer Name: Kiek Leiva MD Signed: 03/09/2022 4:40 PM Workstation Name: [id number]
--- NOTE | 2022-03-09 17:17 | Magnetic Resonance Report ---
MR cervical spine wo con INDICATION / CLINICAL INFORMATION: acute right side weakness/aphasia, dura thrombosis. TECHNIQUE: Multisequence, multiplanar images of the cervical spine were obtained. COMPARISON: None available. FINDINGS: ALIGNMENT: Disc space height loss with minimal degenerative retrolisthesis of C2 on C3, C3 on C4, and C4 on C5. VERTEBRAE:No aggressive osseous marrow signal. Vertebral body heights are preserved. SPINAL CORD: No abnormal cord signal [id number] ANALYSIS: C2-C3: Small disc osteophyte complex. No significant spinal canal stenosis. Mild bilateral foraminal narrowing. C3-C4: Central extrusion which compresses the cord and results in severe spinal canal stenosis. No ab normal cord signal. Moderate bilateral foraminal narrowing. C4-C5: Small disc osteophyte complex. Mild spinal canal stenosis. Severe bilateral foraminal narrowin g. C5-C6: Mild disc osteophyte complex. Mild spinal canal stenosis. Severe bilateral foraminal narrowing . C6-C7: Small disc osteophyte complex. No significant spinal canal stenosis. Moderate bilateral forami nal narrowing. C7-T1: No significant spinal canal stenosis. Mild bilateral foraminal narrowing. PARASPINAL SOFT TISSUES: No significant abnormality. ADDITIONAL FINDINGS: Diffuse abnormal bone marrow; for example there is a large lesion involving the odontoid process with breakthrough of the anterior cortex. There is vertebral body height loss at T2, T3, T4. There is posterior bowing of the T4 cortex which abuts the cord resulting in mild to moderat e spinal canal stenosis. IMPRESSION: 1. 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 2. Central extrusion at C3-C4 results in severe spinal canal stenosis with cord compression. 3. Severe bilateral C4-C5 and C5-C6 and moderate bilateral C3-C4 and C6-C7 foraminal narrowing. Corre late for nerve root symptoms. CERVICAL GRADING DEFINITIONS FOR THE PURPOSES OF THIS REPORT: Cervical canal stenosis: No stenosis: No significant attenuation of the CSF spaces Mild stenosis: Attenuation or effacement of the ventral CSF Moderate stenosis: Effacement of both the ventral and dorsal CSF, cord flattening, but so me CSF remaining Severe stenosis: Effacement of all CSF, cord compression Cervical neural foraminal stenosis (Kayla et al. [employer] J Radiol. 2015 Aug-Sep;16(6):1294-302): No stenosis: No attenuation of the fat in the foramen Mild stenosis: Narrowest point of the foramen is larger than the extraforaminal nerve Moderate stenosis: Narrowest point of the foramen remains greater than 50% of the caliber of the extraforaminal nerve Severe stenosis: Narrowest point of the foramen is less than 50% of the caliber of th e extraforaminal nerve Signer Name: Chris Ordonez MD Signed: 03/09/2022 5:13 PM Workstation Name: [id number]
[2022-03-09] MEDS ORDERED: levETIRAcetam 1000 MG/NS 0.75% 1,000 MG/100 ML BAG IV ONE (17:52)
[2022-03-09] MEDS ORDERED: DEXTROSE 10% IN WATER 1,000 ML IV SCH (18:00)
[2022-03-09 18:51] LABS: Hematocrit 21.5 % (35.5-45.6); Hemoglobin 7.4 gm/dl (11.8-15.2); Mean Corpuscular HGB Conc 35 % (32-34); Mean Corpuscular Volume 85 fl (84-94); Red Blood Count 2.54 M/mm3 (3.65-5.03); Red Cell Distribution Width 16.2 % (13.2-15.2)
[2022-03-09 18:57] LABS: Platelet Count 81 K/mm3 (140-440)
[2022-03-09 20:20] LABS: Basophils % (Manual) 0 % (0.0-1.8); Burr Cells 1+; Eosinophils % (Manual) 0 % (0.0-4.3); Total Cells Counted 100
[2022-03-09 20:21] LABS: Hypochromasia Few; Ovalocytes Few; Platelet Estimate Consistent w Auto
[2022-03-09 20:25] VITALS: BP 92/64
== END 2022-03-09 20:23 | disposition hospice, inpatient (51) ==
LOC: ED 08:30
DX: E11.649 Type 2 diabetes mellitus with hypoglycemia without coma (principal); R47.01 Aphasia; R53.1 Weakness; D64.9 Anemia, unspecified; D69.6 Thrombocytopenia, unspecified; M89.9 Disorder of bone, unspecified; G08 Intracranial and intraspinal phlebitis and thrombophlebitis; I10 Essential (primary) hypertension; Z98.890 Other specified postprocedural states; F17.290 Nicotine dependence, other tobacco product, uncomplicated
CPT/HCPCS: 36415; 70450; 70496; 70498; 70551; 71045; 72141; 80053; 82271; 82550; 82553; 82962; 84484; 85007; 85025; 85520; 85610; 85670; 85730; 86850; 86900; 86901; 86920; 93005; 96361; 96365; 96366; 96375; 96376; 99291; J1200; J1644; J2060; J3490; J7030; J7040; P9016; Q9967

== ENCOUNTER 2022-03-21 20:08 | Emergency (ER) | payer MEDICARE ==
[~2022-03-21 20:08] MED LIST: EPINEPHrine 1 MG/10 ML SYRINGE ONE; SODIUM BICARB 8.4% 50 MEQ/50 ML SYRINGE IV ONE
--- NOTE | 2022-03-21 20:21 | Emergency Department Report ---
ED CPR HPI - General Stated Complaint: CARDIAC ARREST Time Seen by Provider: 03/21/22 20:17 Source: EMS, old records reviewed (Recent discharge paperwork from [facility] reviewed) Mode of arrival: Stretcher Limitations: Altered Mental Status, Physical Limitation - History of Present Illness Initial Comments: 71-year-old male presents to the hospital in cardiopulmonary arrest from home. History of present illness obtained from recent discharge paperwork from [facility]. Patient was admitted March 09 until March 17 with the following discharge diagnoses: Inemia, cord compression, hypertension, diabetes, hypomagnesemia, hyponatremia, lytic lesions on x-ray, and thrombocytopenia Patient apparently received a biopsy with results pending Patient apparently was found down at home. Last known well time was 30 minutes prior to being found. EMS at the scene at 7:30 PM and found patient in asystole. He was intubated with a Ganesh airway. Patient received 3 doses of epinephrine without any change in rhythm. Accu-Chek upon arrival to CPR continued - Related Data Home Medications Medication Instructions Recorded Confirmed Last Taken Chlorthalidone [Thalitone] 25 mg PO QDAY 06/30/13 06/30/13 Unknown Gabapentin 300 mg PO 06/30/13 06/30/13 Unknown Lisinopril/Hydrochlorothiazide 20 - 25 mg PO DAILY 06/30/13 06/30/13 Unknown [Zestoretic 20-25 mg] Metoprolol [Lopressor] 25 mg PO BID 06/30/13 06/30/13 Unknown lisinopriL [Zestril] 40 mg PO QDAY 06/30/13 06/30/13 Unknown metFORMIN [Glucophage] 500 mg PO BID 06/30/13 06/30/13 Unknown Previous Rx's Medication Instructions Recorded Last Taken Type Cephalexin [Keflex] 500 mg PO BID #14 capsule 04/22/14 Unknown Rx Sulfamethoxazole/Trimethoprim 1 each PO BID #14 tablet 04/22/14 Unknown Rx [Bactrim Ds] Allergies Allergy/AdvReac Type Severity Reaction Status Date / Time No Known Allergies Allergy Verified 04/22/14 10:06 ED Review of Systems ROS: Stated complaint: CARDIAC ARREST Other details as noted in HPI Comment: Unobtainable due to pts medical conditions ED Past Medical Hx - Past Medical History Hx Hypertension: Yes Hx Diabetes: Yes - Surgical History Additional Surgical History: Left shoulder surgery - Social History Smoking Status: Current Every Day Smoker Substance Use Type: Alcohol - Medications Home Medications: Home Medications Medication Instructions Recorded Confirmed Last Taken Type Chlorthalidone [Thalitone] 25 mg PO QDAY 06/30/13 06/30/13 Unknown History Gabapentin 300 mg PO 06/30/13 06/30/13 Unknown History Lisinopril/Hydrochlorothiazide 20 - 25 mg PO DAILY 06/30/13 06/30/13 Unknown History [Zestoretic 20-25 mg] Metoprolol [Lopressor] 25 mg PO BID 06/30/13 06/30/13 Unknown History lisinopriL [Zestril] 40 mg PO QDAY 06/30/13 06/30/13 Unknown History metFORMIN [Glucophage] 500 mg PO BID 06/30/13 06/30/13 Unknown History Cephalexin [Keflex] 500 mg PO BID #14 capsule 04/22/14 Unknown Rx Sulfamethoxazole/Trimethoprim 1 each PO BID #14 tablet 04/22/14 Unknown Rx [Bactrim Ds] ED Physical Exam - Other Other exam information: General: Unresponsive Head: Atraumatic Eyes: Pupils fixed unresponsive ENT: Orally intubated Ganesh airway Neck: Normal appearance Chest: Apneic, clear to auscultation with bagging CV: Pulseless Abdomen: Soft, normal bowel sounds, nondistended Back: Normal inspection Extremity: Normal inspection, no spontaneous mood Neuro: GCS equals 3 Psych: Unresponsive Skin: Warm to touch ED Course - Reevaluation(s) Reevaluation #1: 03/21/22 20:22 CPR continued upon patient arrival. 8:05 AM patient arrival 8:07 PM epinephrine provided patient remains in asystole 8:09 PM bicarb provided 8:11 PM epi provided patient remains in asystole 8:13 PM rhythm check patient remains in asystole and time of called. Patient has been in asystole for least 45 minutes with a witnessed arrest with last known well time 30 minutes prior to being found. Unfortunately patient has had not had any response to continued resuscitation efforts. Time of 8:13 PM ED Medical Decision Making - Medical Decision Making 03/21/22 20:22 CPR continued upon patient arrival. 8:05 AM patient arrival 8:07 PM epinephrine provided patient remains in asystole 8:09 PM bicarb provided 8:11 PM epi provided patient remains in asystole 8:13 PM rhythm check patient remains in asystole and time of called. Patient has been in asystole for least 45 minutes with a witnessed arrest with last known well time 30 minutes prior to being found. Unfortunately patient has had not had any response to continued resuscitation efforts. Time of 8:13 PM Critical Care Time: Yes Critical care time in (mins) excluding proc time.: 15 Critical care attestation.: If time is entered above; I have spent that time in minutes in the direct care of this critically ill patient, excluding procedure time. ED Disposition Clinical Impression: Cardiopulmonary arrest Disposition: 20 Is pt being admited?: No Condition: Stable
== END 2022-03-22 06:10 ==
LOC: ED 20:08
DX: I46.9 Cardiac arrest, cause unspecified (principal); F17.200 Nicotine dependence, unspecified, uncomplicated; F10.20 Alcohol dependence, uncomplicated; E11.9 Type 2 diabetes mellitus without complications; I10 Essential (primary) hypertension
CPT/HCPCS: 92950; 99285; J0171